=== PATIENT | female | born 1985 | race Caucasian/White ===

== ENCOUNTER 2017-12-16 18:46 | Inpatient (IN) | payer OTHER ==
[~2017-12-16] VITALS: Ht 213.4 cm; Wt 100.0 kg
[~2017-12-16 18:46] MED LIST: CYMBALTA60 MG PO; ROBAXIN500 MG PO
[2017-12-16 18:58] VITALS: BP 154/84
[2017-12-16] MEDS ORDERED: PRENATAL VITAM1 EA11 PO (19:20)
[2017-12-16 20:04] LABS: BASOPHIL (%) 0.4 % (0-1); BASOPHIL COUNT 0.1 K/uL (0-0.1); EOSINOPHIL (%) 2.5 % (0-5); EOSINOPHIL COUNT 0.4 K/uL (0-0.3); HEMATOCRIT 34.3 % (36.0-46.0); HEMOGLOBIN 11.9 G/DL (11.9-15.5); IMMATURE GRANULOCYTE (%) 0.8 % (0.0-0.7); LYMPHOCYTE (%) 16.2 % (15-42); LYMPHOCYTE COUNT 2.2 K/uL (1.0-2.8); MCH 28.5 PG (29.0-34.0); MCHC 34.7 G/DL (30.0-36.0); MCV 82.1 FL (83-99); MONOCYTE (%) 6.2 % (3-12); MONOCYTE COUNT 0.9 K/uL (0-0.8); NEUTROPHIL (%) 73.9 % (45-76); NEUTROPHIL COUNT 10.2 K/uL (1.8-6.4); PLATELET COUNT 230 K/uL (156-360); RBC DIS.WIDTH-CV 12.3 % (11.8-14.6); RBC DIS.WIDTH-SD 36.5 % (39-53); RED BLOOD COUNT 4.18 M/uL (3.80-5.20); WHITE BLOOD COUNT 13.8 K/uL (4.1-10.2)
[2017-12-16 20:33] VITALS: BP 121/73
[2017-12-16 20:59] VITALS: BP 123/73
[2017-12-16 21:31] VITALS: BP 110/69
[2017-12-16 21:54] VITALS: BP 112/71
[2017-12-16 21:54] LABS: AMPHETAMINE NEGATIVE (500 ng/mL); BARBITURATES NEGATIVE (200 ng/mL); BENZODIAZEPINES NEGATIVE (150 ng/mL); BUPRENORPHINE NEGATIVE (10 ng/mL); COCAINE NEGATIVE (150 ng/mL); METHADONE NEGATIVE (200 ng/mL); METHAMPHETAMINE NEGATIVE (500 ng/mL); OPIATES (MORPHINE) NEGATIVE (100 ng/mL); PHENCYCLIDINE NEGATIVE (25 ng/mL); PROPOXYPHENE NEGATIVE (300 ng/mL); THC CANNABINOIDS NEGATIVE (50 ng/mL); TRICYCLIC ANTIDEPRESSANTS NEGATIVE (300 ng/mL)
[2017-12-16 21:55] LABS: OXYCODONE NEGATIVE (100 ng/mL)
[2017-12-17] VITALS (21 sets, daily range): BP systolic 100–141; BP diastolic 53–85
[2017-12-17] MEDS ORDERED: IBUPROFEN800 MG PO (16:26)
[2017-12-18 22:46] VITALS: BP 108/63
== END 2017-12-19 17:40 | disposition home or self-care (01) | DRG 775 ==
LOC: LDRP-OP → 2WEST 18:49 → LDRP-OP 01-13 10:06
PROVIDERS: Nurse Practitioner
PROC: 3E0P7VZ Introduction of Hormone into Female Reproductive, Via Natural or Artificial Opening (ICD-10-PCS; principal; 2017-12-17)
PROC: 10E0XZZ Delivery of Products of Conception, External Approach (ICD-10-PCS; principal; 2017-12-17)
PROC: 3E0R3BZ Introduction of Anesthetic Agent into Spinal Canal, Percutaneous Approach (ICD-10-PCS; principal; 2017-12-17)
PROC: 10907ZC Drainage of Amniotic Fluid, Therapeutic from Products of Conception, Via Natural or Artificial Opening (ICD-10-PCS; principal; 2017-12-17)
PROC: 00HU33Z Insertion of Infusion Device into Spinal Canal, Percutaneous Approach (ICD-10-PCS; principal; 2017-12-17)
DX: O48.0 Post-term pregnancy (principal); Z3A.40 40 weeks gestation of pregnancy; Z37.0 Single live birth
CPT/HCPCS: 80306 90; 85025; 87641; C1755; G0378; J3010; J7120

== ENCOUNTER → 2017-12-23 | Outpatient (CLI) | payer OTHER ==
[~2017-12-23] MED LIST changes: +IBUPROFEN800 MG PO; +PRENATAL VITAM1 EA11 PO
== END | disposition home or self-care (01) ==
LOC: LAC 12:51
DX: Z39.1 Encounter for care and examination of lactating mother (principal); O92.79 Other disorders of lactation; O92.03 Retracted nipple associated with lactation
CPT/HCPCS: G0463